=== PATIENT | female | born 1995 | race Caucasian/White ===

== ENCOUNTER 2017-05-24 23:46 | Emergency (ER) | payer OTHER ==
[~2017-05-24] VITALS: Ht 167.6 cm; Wt 90.9 kg
[2017-05-25] VITALS: BP 155/79
== END 2017-05-25 00:37 | disposition home or self-care (01) ==
LOC: EMS 23:47
DX: B35.4 Tinea corporis (principal)
CPT/HCPCS: 99282

== ENCOUNTER 2018-07-10 01:10 | Emergency (ER) | payer OTHER ==
[~2018-07-10] VITALS: Ht 160 cm; Wt 90.9 kg
[2018-07-10] MEDS ORDERED: LORA10TA7 PO (01:15)
[2018-07-10] MEDS ORDERED: BUPIVACAINE HCL/PF 0.25% 10 ML VIAL INJ ONE (03:00)
[2018-07-10] MEDS ORDERED: IBUPROFEN 600 MG TABLET PO ONE (03:30)
[2018-07-10] MEDS ORDERED: SULFAMETHOX/TRIMETH DS 800-160 MG/TABLET PO ONE (03:30)
[2018-07-10 03:40] VITALS: BP 135/89
== END 2018-07-10 04:56 | disposition home or self-care (01) ==
LOC: EMS 01:11
DX: L02.31 Cutaneous abscess of buttock (principal)
CPT/HCPCS: 10160; 81025; 99284; J3490; 10060

== ENCOUNTER 2018-10-20 19:01 | Emergency (ER) | payer OTHER ==
[~2018-10-20] VITALS: Ht 160 cm; Wt 104.5 kg
[~2018-10-20 19:01] MED LIST: LORA10TA7 PO
[2018-10-20 22:38] VITALS: BP 116/72
== END 2018-10-20 22:45 | disposition home or self-care (01) ==
LOC: EMS 19:02
DX: S96.911A Strain of unspecified muscle and tendon at ankle and foot level, right foot, initial encounter (principal); F17.210 Nicotine dependence, cigarettes, uncomplicated; X50.1XXA Overexertion from prolonged static or awkward postures, initial encounter; Y93.89 Activity, other specified; Y92.89 Other specified places as the place of occurrence of the external cause; Y99.8 Other external cause status

== ENCOUNTER 2018-11-25 22:45 | Emergency (ER) | payer OTHER ==
[~2018-11-25] VITALS: Ht 160 cm; Wt 109.1 kg
[2018-11-26] MEDS ORDERED: PredniSONE 20 MG TABLET PO ONE (01:30)
[2018-11-26] MEDS ORDERED: SULFAMETHOX/TRIMETH DS 800-160 MG/TABLET PO ONE (01:30)
[2018-11-26 01:35] VITALS: BP 119/84
== END 2018-11-26 01:37 | disposition home or self-care (01) ==
LOC: EMS 22:46
DX: L03.113 Cellulitis of right upper limb (principal); L03.114 Cellulitis of left upper limb; Z87.891 Personal history of nicotine dependence
CPT/HCPCS: 99283; J7512

== ENCOUNTER 2019-05-04 20:24 | Emergency (ER) | payer SELFPAY ==
[~2019-05-04] VITALS: Ht 160 cm; Wt 118.2 kg
[2019-05-04] MEDS ORDERED: PredniSONE 20 MG TABLET PO ONE (20:45)
[2019-05-04] MEDS ORDERED: HYDROCORTISONE 1% 30 GM CREAM TP ONE (20:45)
[2019-05-04] MEDS ORDERED: ACETAMINOPHEN 500 MG TABLET PO ONE (21:00)
[2019-05-04 21:02] VITALS: BP 116/90
== END 2019-05-04 21:30 | disposition home or self-care (01) ==
LOC: EMS 20:26
DX: S80.861A Insect bite (nonvenomous), right lower leg, initial encounter (principal); S80.862A Insect bite (nonvenomous), left lower leg, initial encounter; R21 Rash and other nonspecific skin eruption; F17.210 Nicotine dependence, cigarettes, uncomplicated; W57.XXXA Bitten or stung by nonvenomous insect and other nonvenomous arthropods, initial encounter; Y93.89 Activity, other specified; Y92.89 Other specified places as the place of occurrence of the external cause; Y99.8 Other external cause status
CPT/HCPCS: 81025; 99284; 99406; J7512

== ENCOUNTER 2021-07-12 18:08 | Emergency (ER) | payer MEDICAID ==
[~2021-07-12] VITALS: Ht 160 cm; Wt 125.0 kg
[2021-07-12 18:23] VITALS: BP 135/60
[2021-07-12 19:04] LABS: APPEARANCE,URINE SL CLOUDY (CLEAR); BILIRUBIN,URINE NEGATIVE (NEGATIVE); GLUCOSE, URINE (UA) NEGATIVE (NEGATIVE); KETONES,URINE 15 mg/dL (NEGATIVE); LEUKOCYTE ESTERASE ,URINE MODERATE (NEGATIVE); NITRATE,URINE NEGATIVE (NEGATIVE); OCCULT BLOOD,URINE SMALL (NEGATIVE); PROTEIN,URINE SEE CONFIRM (NEGATIVE); UROBILINOGEN,URINE 0.2 mg/dL (<=1.0)
[2021-07-12 19:12] LABS: SULFOSALICYLIC ACID,URINE 2+ (Negative)
[2021-07-12 19:13] LABS: BACTERIA,URINE Moderate /HPF (None Seen); SQUAMOUS EPITHELIAL CELL,UR Moderate /LPF (None Seen); WBC,URINE 51-100 /HPF (0-5)
[2021-07-12] MEDS ORDERED: AZITHROMYCIN 500 MG TABLET PO ONE (22:00)
[2021-07-12] MEDS ORDERED: CefTRIAXone SODIUM 1 GM/VIAL IM ONE (22:00)
[2021-07-12] MEDS ORDERED: LIDOCAINE/PF 1% 2 ML VIAL IM ONE (22:00)
[2021-07-12] MEDS ORDERED: PHENAZOPYRIDINE HCL 100 MG TABLET PO ONE (22:15)
== END 2021-07-12 22:54 | disposition home or self-care (01) ==
LOC: EMS 18:13
DX: N30.01 Acute cystitis with hematuria (principal); N72 Inflammatory disease of cervix uteri; Z20.822 Contact with and (suspected) exposure to COVID-19
CPT/HCPCS: 81001; 81002; 84703; 87077; 87086; 87491; 87591; 96372; 99284; J0696; J3490; Q9967